=== PATIENT | female | born 1960 | race Caucasian/White ===

== ENCOUNTER → 2018-09-10 | Outpatient (CLI) | payer OTHER ==
[2018-09-10 14:15] VITALS: BP 124/76; PULSE 64; RESP 16; TEMP 98.7; BMI 20.5
--- NOTE | 2018-09-10 15:09 | P.HPOB ---
History of Present Illness H&P Date: 09/10/18 Chief Complaint: The patient is here for her routine gynecologic exam and ma mmogram. This is a 57-year-old with an LMP of 2017. The patient stopped control pills about 2 years ago and has not had a period in 2 years. She has been experiencing hot flashes but they are improving. She is without gynecologic complaints and denies any postmenopausal bleeding. She continues to use Zoloft 25 mg daily which she is used for stress and anxiety issues that she has experienced since around the time of her menopausal change. Review of Systems The patient has gained 6 pounds over the last 2 years. She denies respiratory, cardiac, or G.I. problems. 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 Cervical conization at age 25. History of Any Multi-Drug Resistant Organisms: None Reported Additional Past Surgical History / Comment(s): Colonoscopy 2003. Cold knife colonization of the cervix at age 25. LASIK eye surgery. 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 - Past Family History Father Family Medical History: Myocardial Infarction ([place]) Mother Family Medical History: Cancer Additional Family Medical History / Comment(s): Lung cancer. Medications and Allergies Home Medications Medication Instructions Recorded Confirmed Type Levocetirizine Dihydrochloride 5 mg PO DAILY PRN 09/10/18 09/10/18 History [Xyzal] Sertraline [Zoloft] 12.5 mg PO DAILY 09/10/18 09/10/18 History Allergies Allergy/AdvReac Type Severity Reaction Status Date / Time No Known Allergies Allergy Unverified 09/10/18 14:15 Exam Vital Signs Temp Pulse Resp BP Pulse Ox 09/10/18 14:09 98.7 F 64 16 124/76 99 Intake and Output 09/10/18 09/10/18 09/10/18 06:59 14:59 22:59 Other: Weight 54.431 kg Height 5'4", weight 120 pounds, BMI 20.6. This is a well-developed well-nourished white female who is alert and oriented times 3 in no acute distress. HEENT: Within normal limits. NECK: Supple without mass or thyromegaly. CHEST AND LUNGS: Clear to auscultation. HEART: Regular rate and rhythm. BREASTS: Are without mass or discharge. AXILLARY EXAM: Negative for adenopathy. BACK: Negative for CVA tenderness. ABDOMEN: Soft, nontender, without palpable masses. PELVIC EXAM: Normal external genitalia with mild atrophy. Cervix and vagina appear normal with mild to moderate atrophy. The cervix is slightly stenotic secondary to atrophy. There is no unusual discharge. There is no evidence of prolapse. The uterus is midposition, nongravid size and nontender. There are no palpable adnexal masses or tenderness. RECTAL EXAM: rectovaginal exam is negative for mass or tenderness and is negative for occult blood. EXTREMITIES: Nontender. IMPRESSION: 1. 57-year-old menopausal female with normal gynecologic exam. 2. Mild vasomotor symptoms. 3. On low dose Zoloft for emotional changes and anxiety associated with stress. PLAN: 1. Pap smear was performed. 2. Self breast awareness was discussed with the patient. 3. Screening mammogram will be done today. 4. The patient is requesting screening blood work since she is no longer going to her previous primary care physician. Labs will include CBC, fasting lipid profile, comp pretense of chem panel and TSH. 5. Osteoporosis prevention was discussed. I have stressed the importance of adequate calcium, vitamin D and regular exercise. Recommended amounts of calcium and vitamin D were also discussed. 6. I have recommended screening colonoscopy based on her age. She states she may see Dr. Flowers for this. 7. She will continue to half tablet of Zoloft 50 mg daily. She will also try to wean off of this in the near future. A prescription will be sent to [facility] in [place]. 8. She was advised to return in one year for her annual well woman exam.
--- NOTE | 2018-09-12 08:51 | MM ---
Reason for exam: screening (asymptomatic). Last mammogram was performed 3 years and 11 months ago. History: Patient is postmenopausal. Took hormonal contraceptives for 24 years. Physical Findings: A clinical breast exam by your physician is recommended on an annual basis and results should be correlated with mammographic findings. MG Screening Mammo w CAD Bilateral CC and MLO view(s) were taken. Prior study comparison: October 13, 2014, bilateral MG screening mammo w CAD. February 18, 2009, bilateral digital screening mammogram. The breast tissue is heterogeneously dense. This may lower the sensitivity of mammography. There is no discrete abnormality. No significant changes when compared with prior studies. ASSESSMENT: Negative, BI-RAD 1 RECOMMENDATION: Routine screening mammogram of both breasts in 1 year.
== END | disposition home or self-care (01) ==
LOC: WWCWWP 14:01
PROVIDERS: ATTEND Obstetrics & Gynecology
DX: Z12.31 Encounter for screening mammogram for malignant neoplasm of breast (principal)
CPT/HCPCS: 77067

== ENCOUNTER → 2018-09-24 | Outpatient (CLI) | payer OTHER ==
[2018-09-24 09:20] LABS: Basophils % (A) 0 %; Eosinophils # (A) 0.1 k/uL (0-0.7); Eosinophils % (A) 3 %; HCT 41.1 % (34.0-46.0); HGB 13.6 gm/dL (11.4-16.0); Lymphocytes # (A) 2.3 k/uL (1.0-4.8); Lymphocytes % (A) 54 %; MCH 31.4 pg (25.0-35.0); MCV 95.2 fL (80.0-100.0); Monocytes # (A) 0.2 k/uL (0-1.0); Monocytes % (A) 6 %; Neutrophils # (A) 1.5 k/uL (1.3-7.7); Neutrophils % (A) 35 %; Platelet Count 246 k/uL (150-450); RBC 4.32 m/uL (3.80-5.40); RDW 13.6 % (11.5-15.5); WBC 4.3 k/uL (3.8-10.6)
[2018-09-24 15:58] LABS: African American GFR (CKD) 96.2 (60.0-200.0); Albumin 4.5 g/dL (3.80-4.90); Albumin/Globulin Ratio 2.14 (1.60-3.17); Anion Gap 6.9 mmol/L (4.00-12.00); BUN/Creat Ratio 21.25 Ratio (12.00-20.00); Calcium 9.6 mg/dL (8.7-10.3); Carbon Dioxide 28.1 mmol/L (21.6-31.8); Globulin 2.1 g/dL (1.6-3.3); LDL Cholesterol,Calculated 105.6 mg/dL (0.0-131.0); Potassium 4.7 mmol/L (3.5-5.5); Total Bilirubin 0.4 mg/dL (0.2-1.2); Total Protein 6.6 g/dL (6.2-8.2); VLDL Calculation 13.4 mg/dL (5.00-40.00)
--- NOTE | 2018-09-25 10:57 | P.PN ---
Progress Note - Text Progress Note Date: 09/25/18 OUTPATIENT FOLLOW-UP NOTE TEST(S)/RESULTS: test results from 09/24/2018 include comprehensive chem panel, lipid panel, CBC and TSH. Everything was within normal limits except HDL which was 78 which is excellent, and the BUN/creatinine ratio which was slightly high which is consistent with mild dehydration. The BUN and creatinine were both individually normal. METHOD OF NOTIFICATION: the patient was notified by phone. PATIENT COMMENTS: the patient is happy to hear these results. DIAGNOSIS: good screening blood test results DISCUSSION: we discussed the 2 out of normal range results and how these are not concerning. I have encouraged her to establish with a primary care physician. I have also encouraged her to stay well hydrated. PLAN: She was advised to return in one year for her annual well woman exam.
== END | disposition home or self-care (01) ==
LOC: LABWHC1 08:30
PROVIDERS: ATTEND Obstetrics & Gynecology
DX: Z00.00 Encounter for general adult medical examination without abnormal findings (principal)
CPT/HCPCS: 36415; 80053; 80061; 84443; 85025

== ENCOUNTER → 2020-01-07 | Outpatient (CLI) | payer OTHER ==
[2020-01-07 08:07] VITALS: BP 101/64; PULSE 64; RESP 16; TEMP 98.4
--- NOTE | 2020-01-07 08:58 | P.HPOB ---
History of Present Illness H&P Date: 01/07/20 Chief Complaint: The patient is here for her routine gynecologic exam. This is a 59-year-old with an LMP of 2017. The patient is without gynecologic complaints and denies any post menopausal bleeding. She states she is no longer having hot flashes to any significant degree. She has been using Zoloft 12.5 mg daily for stress and anxiety issues. She feels that she probably could go off of the medication, however, she did stop the medication briefly during this year and developed vertigo which resolved after she restarted the Zoloft. Review of Systems The patient has gained 8 pounds over the last year. She denies respiratory, cardiac, or G.I. problems. 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 Cervical conization at age 25. History of Any Multi-Drug Resistant Organisms: None Reported Additional Past Surgical History / Comment(s): Colonoscopy 2003. Cold knife colonization of the cervix at age 25. LASIK eye surgery. 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 - Past Family History Father Family Medical History: Myocardial Infarction ([place]) Mother Family Medical History: Cancer Additional Family Medical History / Comment(s): Lung cancer. Medications and Allergies Home Medications Medication Instructions Recorded Confirmed Type Levocetirizine Dihydrochloride 5 mg PO DAILY PRN 09/10/18 01/07/20 History [Xyzal] Sertraline [Zoloft] 12.5 mg PO DAILY #45 tab 01/07/20 Rx Allergies Allergy/AdvReac Type Severity Reaction Status Date / Time No Known Allergies Allergy Unverified 01/07/20 08:03 Exam Vital Signs Temp Pulse Resp BP Pulse Ox 01/07/20 08:03 98.4 F 64 16 101/64 97 Intake and Output 01/06/20 01/07/20 01/07/20 22:59 06:59 14:59 Other: Weight 58.06 kg Height 5 feet 4 inches, weight 128 pounds, BMI 22.0. This is a well-developed well-nourished white female who is alert and oriented times 3 in no acute distress. HEENT: Within normal limits. NECK: Supple without mass or thyromegaly. CHEST AND LUNGS: Clear to auscultation. HEART: Regular rate and rhythm. BREASTS: Are without mass or discharge. AXILLARY EXAM: Negative for adenopathy. BACK: Negative for CVA tenderness. ABDOMEN: Soft, nontender, without palpable masses. PELVIC EXAM: Normal external genitalia. Cervix and vagina appear normal with minimal atrophy. There is no unusual discharge. There is no evidence of prolapse. The uterus is midposition, nongravid size and nontender. There are no palpable adnexal masses or tenderness. RECTAL EXAM: Rectovaginal exam is negative for mass or tenderness and is negative for occult blood. EXTREMITIES: Nontender. IMPRESSION: 1. 59-year-old menopausal female with normal gynecologic exam. 2. History of anxiety improved with low-dose Zoloft. PLAN: 1. Pap smear was deferred since she had a normal one on 09/10/2018. 2. Self breast awareness was discussed with the patient. 3. Screening mammogram is due and the order slip was given to the patient for this. 4. Osteoporosis prevention was discussed. I have stressed the importance of adequate calcium, vitamin D and regular exercise. Recommended amounts of calcium and vitamin D were also discussed. 5. She will continue Zoloft 12.5 mg daily at this time. We will try a gradual wean when she feels the time is appropriate. She will go to 12.5 mg every other day for 1 month and then completely wean off. If she has issues when weaning off, she can go back to the 12.5 mg daily if needed. The electronic prescription has been sent to my her pharmacy in [place]. 6. She was advised to return in one year for her annual well woman exam.
== END | disposition home or self-care (01) ==
LOC: WWCWWP 07:52
PROVIDERS: ATTEND Obstetrics & Gynecology
DX: Z53.9 Procedure and treatment not carried out, unspecified reason (principal)

== ENCOUNTER 2020-08-04 11:08 | Day surgery (SDC) | payer BC, OTHER ==
[~2020-08-04 11:08] MED LIST: LACTATED RINGERS 1,000 ML IV SCH
[2020-08-04 11:34] VITALS: TEMP 98.3
[2020-08-04] MEDS ORDERED: PROPOFOL 10 MG/ML 20 ML VIAL IV ONE (11:59)
--- NOTE | 2020-08-04 12:19 | P.PCN ---
Date of Procedure: 08/04/20 Procedure(s) Performed: BRIEF HISTORY: Patient is a 59-year-old pleasant white female scheduled for an elective colonoscopy as a part of screening for colorectal neoplasia. PROCEDURE PERFORMED: Colonoscopy. PREOPERATIVE DIAGNOSIS: Screening for colon cancer. IV sedation per Anesthesia. PROCEDURE: After informed consent was obtained, the patient, was brought into the endoscopy unit. IV sedation was administered by Anesthesia under continuous monitoring. Digital rectal examination was normal. Initially the Olympus CF-160 flexible video pediatric colonoscope was then inserted in the rectum, gradually advanced into the cecum without any difficulty. Careful examination was performed as the scope was gradually being withdrawn. Ileocecal valve and the appendiceal orifice were visualized and appeared normal. Prep was excellent. Mucosa of the cecum, ascending colon, transverse colon, descending colon, sigmoid colon, and rectum appeared normal. Retroflexion was performed in the rectum and no lesions were seen. The patient tolerated the procedure well. IMPRESSION: Normal-appearing colon from rectum to cecum with no evidence of colorectal neoplasia . RECOMMENDATIONS: Findings of this examination were discussed with the patient family. She was advised to have a repeat screening colonoscopy in 10 years..
[2020-08-04 12:27] VITALS: RESP 18
[2020-08-04 12:37] VITALS: BP 126/83; PULSE 58
== END 2020-08-04 12:54 | disposition home or self-care (01) ==
LOC: ORWHC2ENDO 11:08
PROVIDERS: ATTEND Internal Medicine Gastroenterology
DX: Z12.11 Encounter for screening for malignant neoplasm of colon (principal); E78.5 Hyperlipidemia, unspecified; F32.9 Major depressive disorder, single episode, unspecified; Z98.890 Other specified postprocedural states; Z79.899 Other long term (current) drug therapy
CPT/HCPCS: J2704; G0121; 45378

== ENCOUNTER → 2021-05-31 | Outpatient (CLI) | payer BC ==
--- NOTE | 2021-06-02 09:40 | MM ---
Reason for exam: screening (asymptomatic). Last mammogram was performed 2 years and 9 months ago. History: Patient is postmenopausal. Took hormonal contraceptives for 24 years. Physical Findings: A clinical breast exam by your physician is recommended on an annual basis and results should be correlated with mammographic findings. MG 3D Screening Mammo W/Cad Bilateral CC and MLO view(s) were taken. Prior study comparison: September 10, 2018, bilateral MG screening mammo w CAD. October 13, 2014, bilateral MG screening mammo w CAD. The breast tissue is extremely dense which could obscure a lesion on mammography. Finding: There are intermediate concern, suspicious round, grouped/clustered calcifications in the upper outer quadrant, posterior position of the left breast. New finding since September 10, 2018 and October 13, 2014. ASSESSMENT: Incomplete: need additional imaging evaluation, BI-RAD 0 RECOMMENDATION: Special view mammogram of the left breast. [facility] will attempt to contact patient to return for supplemental views.
== END | disposition home or self-care (01) ==
LOC: RADMAMWWP 12:00
PROVIDERS: ATTEND Family Medicine
DX: Z12.31 Encounter for screening mammogram for malignant neoplasm of breast (principal); Z78.0 Asymptomatic menopausal state
CPT/HCPCS: 77063; 77067

== ENCOUNTER → 2021-06-03 | Outpatient (CLI) | payer BC ==
--- NOTE | 2021-06-06 15:03 | MM ---
Reason for exam: additional evaluation requested from abnormal screening. Last mammogram was performed less than 1 month ago. History: Patient is postmenopausal. Took hormonal contraceptives for 24 years. Physical Findings: A clinical breast exam by your physician is recommended on an annual basis and results should be correlated with mammographic findings. MG 3D Work Up W/Cad LT Spot compression CC, spot compression MLO, and LM view(s) were taken of the left breast. Prior study comparison: May 31, 2021, bilateral MG 3d screening mammo w/cad. September 10, 2018, bilateral MG screening mammo w CAD. October 13, 2014, bilateral MG screening mammo w CAD. The breast tissue is extremely dense which could obscure a lesion on mammography. Finding: There are 3mm heterogeneous, grouped/clustered calcifications in the upper outer quadrant, middle, posterior position of the left breast persists on additional views. Results were given to the patient verbally at the time of the exam. ASSESSMENT: Suspicious, BI-RAD 4 RECOMMENDATION: Stereotactic core biopsy of the left breast. Called Dr. Monik Jones's office with mammographic findings and has scheduled an appointment for the patient for 07/21/21 at 11:[address] Jones. Biopsy scheduled for 06/20/21 at 10:00. PRELIMINARY REPORT CALLED AND FAXED TO DR. JONES ON 06/06/21.
== END | disposition home or self-care (01) ==
LOC: RADMAMWWP 15:03
PROVIDERS: ATTEND Family Medicine
DX: R92.8 Other abnormal and inconclusive findings on diagnostic imaging of breast (principal)
CPT/HCPCS: 77061; 77065

== ENCOUNTER → 2021-06-20 | Day surgery (SDC) | payer BC ==
[2021-06-20 10:19] VITALS: RESP 16
[2021-06-20 11:06] VITALS: BP 131/79; PULSE 77; TEMP 98.1
--- NOTE | 2021-06-20 11:44 | MM ---
Stereotactic Mammotome core biopsy left breast. HISTORY: Microcalcifications The microcalcifications in question within the left breast were targeted by the undersigned. Procedure was performed by the undersigned. Informed consent was obtained and all of the patients questions were answered. The standard sterile technique was utilized and appropriate local anesthesia was obtained with 1% lidocaine. Mammotome probe was advanced and multiple core samples were obtained and sent to pathology for interpretation. Postprocedural mammogram radiographs demonstrate that the clip did not deploy. There appear to be a couple of residual calcifications. The patient tolerated the procedure well and left the department in stable condition. Pathology results are pending. IMPRESSION: Successful stereotactic core biopsy left breast with pathology results pending. Postprocedural mammogram radiographs demonstrate that the clip did not deploy. There appear to be a couple of residual calcifications. Pathology Results: Benign LEFT BREAST, CORE BIOPSY: Sclerotic fibroadenomatoid hyperplasia with fibrocystic change and rare microcalcification (see note). Recommendation Follow up mammogram of the left breast in 6 months. KAIT
== END ==
LOC: RADMAMWWP 10:09
PROVIDERS: ATTEND Surgery
DX: N60.12 Diffuse cystic mastopathy of left breast (principal)
CPT/HCPCS: 19081; 88305; A4648; J2001

== ENCOUNTER → 2021-12-27 | Outpatient (CLI) | payer BC ==
--- NOTE | 2021-12-27 14:57 | MM ---
Reason for Exam: Follow-up at short interval from prior study. Last screening mammogram was performed 7 month(s) ago. Patient History: Menarche at age 16. First Full-Term at age 32. Late child-bearing (after 32). Postmenopausal. Hormonal Contraceptives for 24 years until age 48. 06/20/2021, Benign Core Biopsy on the left side. Risk Values: Charisma 5 year model risk: 2.1%. NCI Lifetime model risk: 11.0%. Prior Study Comparison: 09/10/2018 Bilateral Screening Mammogram, [facility]. 05/31/2021 Bilateral Screening Mammogram, [facility]. 06/03/2021 Left Diagnostic Mammogram, [facility]. Tissue Density: Left: There are scattered fibroglandular densities. Findings: Analyzed By CAD. No discrete spiculated or lobular masses evident correlate with the palpable region marked on the left breast. Breasts are largely related to the prostheses with little breast parenchymal tissue remaining. Overall Assessment: Benign, BI-RAD 2 Management: Screening Mammogram of both breasts in 1 year. A clinical breast exam by your physician is recommended on an annual basis and results should be correlated with mammographic findings. This exam should not preclude additional follow-up of suspicious palpable abnormalities. Results were given to the patient verbally at the time of exam. Electronically signed and approved by: Neeraj Reyna D.O. Radiologis
== END | disposition home or self-care (01) ==
LOC: RADMAMWWP 13:10
PROVIDERS: ATTEND Surgery
DX: R92.8 Other abnormal and inconclusive findings on diagnostic imaging of breast (principal)
CPT/HCPCS: 77061; 77065

== ENCOUNTER → 2023-09-05 | Outpatient (CLI) | payer BC ==
[2023-09-05 08:55] VITALS: BP 114/70; PULSE 62; RESP 16; TEMP 98.2
--- NOTE | 2023-09-05 09:46 | P.HPOB ---
History of Present Illness H&P Date: 09/05/23 Chief Complaint: The patient is here for her routine gynecologic exam and ma mmogram. This is a 62-year-old with an LMP of 2017. The patient states she has had difficulty maintaining her weight she has gained weight during the past year. She states she has been typically under 120 pounds most of her life. In general, she states she feels great. She has noticed her sex drive is lower but otherwise is without gynecologic complaints and denies any postmenopausal bl eeding. She has questions about hormone replacement therapy. She has friends that take different forms of HRT. Review of Systems Her weight is down 4 pounds from 2020. She thinks she has gained a few pounds over the past year. She denies respiratory, cardiac, or GI problems. 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 Cervical conization at age 25. History of Any Multi-Drug Resistant Organisms: None Reported Past Surgical History: Breast Surgery Additional Past Surgical History / Comment(s): Colonoscopy 2003. Cold knife CONIZATION of the cervix at age 25. LASIK eye surgery times 2. Neck lift 2016. Left breast biopsy which was benign in 2021. Colonoscopy in 2020 (next after 10yr). 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 - Past Family History Father Family Medical History: Myocardial Infarction ([place]) Mother Family Medical History: Cancer Additional Family Medical History / Comment(s): Lung cancer. Medications and Allergies Home Medications Medication Instructions Recorded Confirmed Type No Known Home Medications 09/05/23 09/05/23 History Allergies Allergy/AdvReac Type Severity Reaction Status Date / Time No Known Allergies Allergy Unverified 09/05/23 08:52 Exam Vital Signs Temp Pulse Resp BP Pulse Ox 09/05/23 08:53 98.2 F 62 16 114/70 100 Intake and Output 09/04/23 09/05/23 09/05/23 22:59 06:59 14:59 Other: Weight 56.245 kg Height 5 feet 4 inches, weight 124 pounds, BMI 21.3. This is a well-developed well-nourished white female who is alert and oriented times 3 in no acute distress. HEENT: Within normal limits. NECK: Supple without mass or thyromegaly. CHEST AND LUNGS: Clear to auscultation. HEART: Regular rate and rhythm. BREASTS: Are without mass or discharge. AXILLARY EXAM: Negative for adenopathy. BACK: Negative for CVA tenderness. ABDOMEN: Soft, nontender, without palpable masses. PELVIC EXAM: Normal external genitalia with mild atrophy. Cervix and vagina appear normal with mild atrophy. There is no unusual discharge. There is no evidence of prolapse. The uterus is midposition, nongravid size and nontender. There are no palpable adnexal masses or tenderness. RECTAL EXAM: Rectovaginal exam is negative for mass or tenderness and is negative for occult blood. EXTREMITIES: Nontender. IMPRESSION: 1. 70-year-old menopausal female with normal gynecologic exam. PLAN: 1. Pap smear cotest was performed. 2. Self breast awareness was discussed with the patient. We have also discussed symptoms associated with inflammatory breast cancer. 3. Screening mammogram will be done today. 4. We have had a long discussion regarding her weight control, decreased libido, and HRT. We have discussed possible risks of HRT including increased risk for heart attack, stroke, breast cancer and blood clots. The increases for these are not large, but they are things that need to be considered when considering HRT. We have discussed different forms of HRT including use of testosterone. She understands HRT is an option, but she would need to wait the benefits against the risks. At this time we have decided to not use HRT. She states in general she is feeling great. 5. Osteoporosis prevention was discussed. I have stressed the importance of adequate calcium, vitamin D and regular exercise. Recommended amounts of calcium and vitamin D were also discussed. Bone density testing will be done today. 6. She was advised to return in one year for her annual well woman exam and as needed.
--- NOTE | 2023-09-06 23:44 | BD ---
EXAMINATION TYPE: Axial Bone Density DATE OF EXAM: 09/05/2023 CLINICAL HISTORY: 62 years old Female. ICD-10 CODE: Z78.0 Post menopausal without HRT Height: 63.5 in Weight: 123 lbs EXAM MEASUREMENTS: Bone mineral densitometry was performed using the [employer] System. Bone mineral density as measured about the Lumbar spine is: ----- L1-L4(G/cm2): 1.377 T Score Values are as follows: ----- L1: 0.1 ----- L2: 3.0 ----- L3: 2.8 ----- L4: 0.6 ----- L1-L4: 1.6 Z Score Values are as follows: ----- L1: 1.7 ----- L2: 4.6 ----- L3: 4.3 ----- L4: 2.1 ----- L1-L4: 3.2 Bone mineral density has: Decreased -3.0% since study of: 04/03/2006 Bone mineral density about the R hip (g/cm2): 0.934 Bone mineral density about the L hip (g/cm2): 1.026 T Score values are as follows: -----R Neck: -1.0 -----L Neck: -0.1 -----R Total: -0.6 -----L Total: 0.1 Z Score values are as follows: -----R Neck: 0.5 -----L Neck: 1.3 -----R Total: 0.6 -----L Total: 1.3 Bone mineral density has: Decreased -12.7% since study of: 04/03/2006 FRAX%s: The graph provided illustrates a 6.6% chance for a major osteoporotic fx and a 0.4% chance fo r the hips probability for fx in 10 years time. IMPRESSION: Normal (Values between +1 and -1 indicate normal bone mass). Consider repeating this study in 5 year s or sooner if there is some new clinical indication. NOTE: T-SCORE=SD OF THE YOUNG ADULT MEAN.
== END ==
LOC: WWCWWP 08:38
PROVIDERS: ATTEND Obstetrics & Gynecology
DX: Z12.31 Encounter for screening mammogram for malignant neoplasm of breast (principal); Z78.0 Asymptomatic menopausal state
CPT/HCPCS: 77063; 77067; 77080